=== PATIENT | female | born 1940 ===

== ENCOUNTER 2016-12-03 15:28 | Outpatient (CLI) | payer MEDICARE ==
[2016-12-03 16:28] LABS: INR-International Normal Ratio 1.5; Prothrombin Time 18.2 SEC (12.0-14.7)
== END 2016-12-03 15:29 | disposition home or self-care (01) ==
LOC: MADLAB 15:28
PROVIDERS: ATTEND Family Medicine
DX: Z51.81 Encounter for therapeutic drug level monitoring (principal); Z79.82 Long term (current) use of aspirin
CPT/HCPCS: 85610